=== PATIENT | male | born 1995 | race African-American/Black ===

== ENCOUNTER 2021-09-27 11:34 | Emergency (ER) | payer BC ==
[~2021-09-27] VITALS: Ht 175.3 cm; Wt 72.6 kg
[2021-09-27 11:51] VITALS: BP 129/78
--- NOTE | 2021-09-27 12:33 | NUR ---
Patient discharged to home in stable condition. Written and verbal after care instructions given. Patient verbalizes understanding of instruction.
== END 2021-09-27 13:00 | disposition home or self-care (01) ==
LOC: ER 11:45
DX: B04 Monkeypox (principal); R21 Rash and other nonspecific skin eruption